=== PATIENT | male | born 1975 | race Asian ===

== ENCOUNTER 2016-07-21 09:47 | Observation (INO) | payer OTHER ==
[2016-07-21] VITALS (8 sets, daily range): BP systolic 112–139; BP diastolic 75–91; PULSE 67–98; RESP 11–21; O2SAT 97–100
[~2016-07-21] VITALS: Ht 165.1 cm; Wt 58.8 kg
--- NOTE | 2016-07-21 09:53 | ED.REPORT ---
HPI-Stroke / CVA Jul 21, 2016 ED Provider: MD Lev This is a 40 year old male presenting to the emergency department due to sudden onset R sided numbness that occurred 1.5 hours ago. Pt states he stood up and suddenly noticed R hand numbness, associated with R facial droop, and slurred speech. Episode lasted 45 seconds and spontaneously resolved. Pt states he is at baseline now but reports a "strange sensation" in the R small finger. Denies numbness or weakness in extremities but describes the sensation as "muscle fatigue." Denies change LOC, nausea, chest pain, diaphoresis, headache, slurred speech, facial droop, numbness, or weakness at this time. Left side unaffected. Nursing Notes Stated Complaint: RIGHT SIDE WEAKNESS Chief Complaint: Neuro Symptoms/ Deficits Nursing Notes Reviewed: Yes Allergies: Coded Allergies: No Known Allergies (Unverified , 07/21/16) Scheduled PRN Fluticasone Propionate (Flonase Allergy Relief) 50 Mcg/Actuation [place].susp 9.9 ML NS DIRECTED PRN PRN ALLERGIES (Reported) General Time Seen by Provider: 09:52 Chief Complaint Numbness Right-sided Hx Obtained From: Patient Arrived By: Walk-in Time last known well - Sudden in Onset?: Yes Symptom Duration: Since onset Progression Since Onset: Resolved Severity: Current: No pain currently Pertinent Negative: Pt denies other symptoms Recent Healthcare: No recent hospitalization, Recent doctor visit Similar Sx Previous: No Risk Factors )( TPA Administration/Criteria Stroke Thrombolytic Therapy : TPA Administered Intravenously: No, not indicated NIH Stroke Scale Level of Consciousness: Alert and responsive (0) Ask Month & Age: Both questions right (0) Open/Close Eyes/Hand Apparel Cutter: Performs both tasks (0) Horizontal EO Movements: None (0) Visual [place]: No visual loss (0) Facial Palsy: Normal symmetry (0) Right Arm Motor Drift (10s): No drift 10 sec (0) Left Arm Motor Drift (10s): No drift 10 sec (0) Right Leg Motor Drift (5s): No drift 5 sec (0) Left Leg Motor Drift (5s): No drift 5 sec (0) Limb Ataxia FNF/Heel-Hicks: No ataxia (0) Sensation (Arms/Legs/Face): No sensory loss (0) Language Aphasia: No aphasia, normal (0) Dysarthria: No dysarthria, normal (0) Extinction/Inattention: No exctinct/inattent (0) NIHSS Score: 0 Time NIHSS Performed: 09:58 Date NIHSS Performed: Jul 21, 2016 Past Medical History Past Medical History Denies Past Surgical History Denies Ambulatory Status Independent Review of Systems Constitutional: Denies: Chills, Fever Respiratory: Denies: Non-productive cough, Shortness of breath Cardiovascular: Denies: Chest pain GI: Denies: Abdominal pain, Nausea, Vomiting Neurologic: Reports: Numbness, Weakness, Denies: Headache, Lightheaded Complete sys rev & neg: except as marked. Physical Exam Initial Vital Signs Vital Signs (First) Date Time Temp Pulse Resp B/P Pulse Ox O2 Delivery O2 Flow Rate FiO2 07/21/16 09:52 36.8 81 15 138/91 100 Room Air - Initial VS: Reviewed ENT: Mucous membranes moist, Conjunctiva normal, No scleral icterus Abdomen / GI: Soft, Non-tender, No guarding, No rebound, No distention Skin: Warm, Dry, No cyanosis Psychiatric: Mood/affect normal, Behavior normal, Normal thought content General/Constitutional: Awake, Alert Head / Eyes: Normocephalic, PERRL, EOMI Neck: Supple, Full range of motion, No swelling, Non-tender, No carotid bruit Respiratory / Chest: Breath sounds NL, Breath sounds = bilat, No respiratory distress, No rales, No rhonchi, No wheezing Cardiovascular: Heart rate NL, Regular rhythm, Heart sounds NL, No murmurs, Peripheral circulation NL Neurologic: Oriented X3, Speech NL, No motor deficits, No sensory deficits, CN II - XII intact, Reflexes equal bilat, Cerebellar NL Upper Extremity / MS: Inspection NL, No swelling, Non-tender Lower Extremity / Pelvis / MS: Inspection NL, No swelling, Non-tender, No erythema, No deformity, Neurologic intact, Vascular intact, No edema Interpretation & Diagnostics Lab Results Interpretation Result Diagram: 07/21/16 1048 07/21/16 1048 Test 07/21/16 10:48 White Blood Count 6.9th/mm3 (3.8-10.1) Red Blood Count 5.58mil/mm3 (4.40-5.80) Hemoglobin 16.8g/dL (13.8-17.2) Hematocrit 48.1% (41.0-50.0) Mean Corpuscular Volume 86.2fL (81-100) Mean Corpuscular Hemoglobin 30.1pg (27.0-35.0) Mean Corpuscular Hemoglobin Concent 34.9% (32.0-37.0) Red Cell Distribution Width 12.3% (12.3-15.4) Platelet Count 241bil/L (150-400) Neutrophils (%) (Auto) 51.3% (40-74) Lymphocytes (%) (Auto) 36.8% (14-46) Monocytes (%) (Auto) 8.6% (4-12) Eosinophils (%) (Auto) 2.8% (0-5) Basophils (%) (Auto) 0.4% (0-3) Activated Partial Thromboplast Time 28.7sec (22.8-33.0) Sodium Level 137mEq/L (134-144) Potassium Level 4.3mEq/L (3.5-5.2) Chloride Level 101mEq/L (97-108) Carbon Dioxide Level 24mmol/L (18-29) Blood Urea Nitrogen 20mg/dL (6-20) Creatinine 0.82mg/dL (0.76-1.27) Estimat Glomerular Filtration Rate 111mL/min (>59) Glucose Level 99mg/dL (60-99) Calcium Level 9.1mg/dL (8.5-10.1) Total Bilirubin 0.9mg/dL (0.0-1.2) Aspartate Amino Transf (AST/SGOT) 27U/L (0-50) Alanine Aminotransferase (ALT/SGPT) 28U/L (0-44) Alkaline Phosphatase 39U/L (25-150) Troponin T 0.010ug/L (0.0-0.011) Total Protein 7.3g/dL (6.4-8.4) Albumin 4.5g/dL (3.4-5.0) ECG Interpretation ECG Interpretation: NSR at a rate of [address] elevation Time: 10:45 Interpreted by: ED physician CT Head Interpretation IMPRESSION: 1. No acute intracranial process. Dictated by: Pavithra Castañeda M.D. on 07/21/2016 at 10:44 Approved by: Pavithra Castañeda M.D. on 07/21/2016 at 10:45 Interpretation / Wet Read by: Interpret - Radiologist Re-Eval/Medical Decision Med Decision/Clinical Course 40-year-old male no past medical history presenting complaining of 45 second episode of right facial droop, right hand numbness and weakness, difficulty speaking at 08 30 this morning. Symptoms resolved prior to arrival. CT head no hemorrhage. Labs unremarkable. No prior history of TIA or CVA. He does have a history of anxiety. Discussed with patient and he will be admitted for TIA and stroke workup. Re-Evaluation/Progress : Time of Eval: 12:00 )( Re-Eval Neurologic Exam: Alert Patient Status: Condition resolved, Pain resolved Re-Evaluation/Progress Note: Discussed lab results and plan for admission. pt understands and agrees with plan, all questions addressed. Consultation : Referral / Consult Name: Crowley,Ed Shweta BROWN Consulted With: Hospitalist Call Returned at: 12:43 Baby Stroller Rental Clerk: Accepts admit Counseled Regarding: Diagnosis, Lab results, Need for follow-up, Need for admission Patient Discharge & Departure Impression: Primary Impression: TIA (transient ischemic attack) Transient cerebral ischemia type: unspecified Qualified Code: G45.9 - Transient cerebral ischemic attack, unspecified Disposition: ADMITTED TO HOSPITAL Discharge Condition All VS Reviewed: Yes Condition: Stable Referrals: NOPCP (PCP) Scribe Attestation Portions of this note were transcribed by Monique Lacey. I, Dr. Ohara personally performed the history, physical exam and medical decision-making; I reviewed and confirmed the accuracy of the information in the transcribed note. Signed by: ayan Mccabe. 07/21/2016, 15:00. Thony Ohara MD Jul 21, 2016 09:53 MONIQUE LACEY Jul 21, 2016 10:02
--- NOTE | 2016-07-21 10:47 | DRSVH ---
PROCEDURE: CT BRAIN WITHOUT CONTRAST ([id number]) INDICATIONS: Stroke TECHNIQUE: Noncontrast 4.5 mm thick angled axial sections acquired from the foramen magnum to the vertex, with c oronal reformats. COMPARISON: None. FINDINGS: Image quality: Excellent. CSF spaces: Basal cisterns are patent. No extra-axial fluid collections. Ventricles are normal in size and shape. Brain: No midline shift. No intracranial masses or hemorrhage. Tracy-white matter interface is norm al. Skull and face: Calvarium and visualized facial bones are intact, without suspicious lesions. Sinuses: Visualized sinuses and mastoids are clear. IMPRESSION: 1. No acute intracranial process. Dictated by: Pavithra Castañeda M.D. on 07/21/2016 at 10:44 Approved by: Pavithra Castañeda M.D. on 07/21/2016 at 10:45
[2016-07-21 10:58] LABS: BASOPHILS % (AUTO) 0.4 % (0-3); EOSINOPHILS % (AUTO) 2.8 % (0-5); MONOCYTES % (AUTO) 8.6 % (4-12); Mean Corpuscular Hemoglobin 30.1 pg (27.0-35.0); Mean Corpuscular Volume 86.2 fL (81-100); NEUTROPHILS % (AUTO) 51.3 % (40-74); Platelet Count 241 bil/L (150-400)
[2016-07-21 11:13] LABS: INR 0.97 ratio
[2016-07-21 11:24] LABS: TROPONIN T 0.01 ug/L (0.0-0.011)
[2016-07-21] MEDS ORDERED: Alum-Mag Hydrox-Simeth 30 mL Suspension PO PRN (12:45)
[2016-07-21] MEDS ORDERED: Ondansetron 2 mg/mL 2 mL Inj IV PRN (12:45)
[2016-07-21] MEDS ORDERED: Polyethylene Glycol (PEG) 17 Gm Powder PO PRN (12:45)
[2016-07-21] MEDS ORDERED: FLUT9.9S NS (14:21)
--- NOTE | 2016-07-21 15:24 | NUR ---
Admit Pt admitted to [facility] from ED at 1320. Pt denies pain. IV in LAC patent. Pt placed on tele, monitor made aware. Admit done by primary RN. in to see pt. Pt oriented with room and facility. Bed in low position, upper rails up, call light in reach. Will continue to monitor.
--- NOTE | 2016-07-21 16:06 | PCM.HPMED ---
Subjective Date of Service Jul 21, 2016 Primary Provider: Admitting Physician: Ed Crowley DO Primary Care Physician: Juan David Gamboa MD Attending Physician: Ed Crowley DO Chief Complaint: Slurred speech transient numbness of right hand History of Present Illness: Patient is a 40-year-old male with essentially negative past medical history unknown family history due to adoption presenting today following event earlier this morning during which time he experienced a sudden transient numbness of his right hand which subsequently extended [place] and began involving the right side of his face. He noted drooping of face and additionally of slurring of his speech for approximately 45 seconds, less than 1 minute before symptoms spontaneously improved. Hand numbness persisted a short period of time longer however all sensations had returned to normal within half an hour. He discussed with his the odd sensations and they agreed that presentation to urgent care for further evaluation was prudent, given abrupt onset and concern for possible serious medical condition. Patient was referred to emergency department from urgent care for further evaluation of possible TIA or CVA given history. ER evaluation no negative, nonetheless warranted admission given ER physician's concern for transient ischemic event, and need for further evaluation. Patient was in agreement due shock of events earlier today though he had no complaints or symptoms at time of presentation ER or when admitted to floor. Requiring my evaluation patient confirmed history obtained by emergency physician, and noted no recurrence of events since his presentation to emergency department. He additionally notes never experiencing any sensations like this in the past. He has no other acute complaints at this time specifically denying chest pain or shortness of breath. He changes in taste, vision, smell, sensation of any kind. Review of Systems: A 10 point review of systems was conducted and entirely negative except for pertinent positives and negatives included in above history of present illness Allergies Coded Allergies: No Known Allergies (Unverified , 07/21/16) Home Medications Topical steroid. PMH Unremarkable excepting recent rash of left arm which has resolved with topical steroid cream Surgical History Denies any significant surgical history Family History Patient was adopted and unaware of family history Social History Hx Alcohol Use: No Hx Substance Use: No Smoking Status: Never Smoker Exam Vital Signs Vital Sign - Last Date Time Temp Pulse Resp B/P Pulse Ox O2 Delivery O2 Flow Rate FiO2 07/21/16 14:26 75 07/21/16 13:27 36.6 16 139/87 97 Room Air General: Alert, Oriented X3, Cooperative, No Acute Distress Eyes: PERRLA, EOMI Mouth: Mucous Membr Moist/[place] Neck: Supple, No Thyromegaly Chest & Lungs: Clear to auscultation & percussion, No adventitious breath sounds Cardiovascular: Regular Rate/Rhythm, Normal S1, Normal S2, No Murmurs/Rubs/ Gallops Pulses: NL carotid, radial, femoral, DP, PT Abdomen: Non-tender, Non-distended Extremities: No cyanosis/clubbing/edma bilat Neurological: Grossly Neurologically Intact, Cranial Nerves 2-12 Intact, Normal Speech, Strength Normal 4/4 ext, Normal Gait, Sensation Intact, Cerebellar Function nl Finger-Nose, Cerebellar Function nl Heel-Hicks, Reflexes Normal, Babinski Reflex Normal Lab and Diagnostics Result Diagram: 07/21/16104707/21/161047 Assessment & Plan 40-year-old male with no significant past medical history, presenting with history highly concerning for transient ischemic event in spite of his exceedingly low risk, placed on hospital observation for further evaluation. 1. TIA/slurred speech right-sided weakness - Condition entirely resolved as noted in history of present illness - Patient be placed on continuous telemetry monitoring in addition conduct imaging studies including MRI and CT angiogram of neck as per TIA stroke protocol. - Echocardiogram is additionally pending to rule out any cardiogenic cause of stroke, and PT/OT and speech have been consulted for further evaluation of patient's motor functioning and capacity. - Patient notes recent lipid panel obtained at work was entirely normal so this will not be repeated. Hemoglobin A1c R has been ordered and is pending to rule out undiagnosed diabetes. 2. Allergic rash of arm - Noted previously, but now entirely resolved not appreciated on physical exam. - No interventions needed at this time, it appears unlikely to be related to problem above. Pain Evaluation: Adequate Pain Control GI Prophylaxis: Not indicated VTE Mechanical Devices: Anti-Embolic stockings Resuscitation Status: CPR: Attempt Resuscitation Time spent 40 minutes Ed Crowley DO Jul 21, 2016 16:06
--- NOTE | 2016-07-21 16:56 | NUR ---
Evaluation completed. Please go to "Notes" then click on "Assessments and Notes" (bottom left corner of screen). Then select appropriate discipline tab on top of screen.
[2016-07-22 00:58] VITALS: BP 148/71; PULSE 68; RESP 18; O2SAT 96
--- NOTE | 2016-07-22 04:35 | NUR ---
Uneventful night Patient reported that neuro symptoms have resolved, and he confirmed that he feels he is at his baseline. No deficits noted. Alert and oriented, clear speech, denies numbness/tingling, steady gait, equal strength. Pleasant and cooperative with care.
[2016-07-22 05:24] VITALS: BP 105/69; PULSE 66; RESP 16; O2SAT 99
[2016-07-22 06:23] VITALS: PULSE 66
[2016-07-22 10:13] VITALS: PULSE 73
[2016-07-22 10:15] VITALS: PULSE 78
[2016-07-22 10:26] VITALS: BP 110/75; PULSE 75; RESP 16; O2SAT 97
--- NOTE | 2016-07-22 12:04 | NUR ---
PT eval PT eval received per stroke guidelines; pt's Sxs completely resolved; discussed with nsg; pt was up indep without difficulty; stopped by for courtesy visit to see if pt had any concerns about strength/mobility and discharge back home; pt is confident that he is back to baseline and has no questions for PT; will discharge order at this time
--- NOTE | 2016-07-22 14:09 | PCM.DIMED ---
Discharge Instructions Date of Service Jul 22, 2016 Dates of Hospitalization Jul 21, 2016 at 12:47 Discharge Diagnosis Discharge Diagnosis Transient numbness with slurred speech, nerve palsy of unclear significance. No evidence of cerebral vascular accident/infarction. Diet No restrictions Activity No restrictions Call your provider Weakness (unilateral) Patient Instructions Follow-up Provider: Juan David Gamboa MD Follow-up with PCP in: 2 weeks Ed Crowley DO Jul 22, 2016 14:09
--- NOTE | 2016-07-22 14:24 | PCM.DC.MED ---
Discharge Summary Date of Service Jul 22, 2016 Dates of Hospitalization Date of Hospital Admission Jul 21, 2016 at 12:47 Date of Discharge: Jul 22, 2016 Providers: Admitting Physician: Ed Crowley DO Primary Care Physician: Juan David Gamboa MD Attending Physician: Ed Crowley DO Diagnosis at Time of Discharge Diagnosis at Time of Discharge Transient numbness with slurred speech, nerve palsy of unclear significance. No evidence of cerebral vascular accident/infarction. Procedures XRay, CTs & MRIs Date of Service: 07/21/16 1003 PROCEDURE: CT BRAIN WITHOUT CONTRAST ([id number]) INDICATIONS: Stroke TECHNIQUE: Noncontrast 4.5 mm thick angled axial sections acquired from the foramen magnum to the vertex, with coronal reformats. COMPARISON: None. FINDINGS: Image quality: Excellent. CSF spaces: Basal cisterns are patent. No extra-axial fluid collections. Ventricles are normal in size and shape. Brain: No midline shift. No intracranial masses or hemorrhage. [place]-white matter interface is normal. Skull and face: Calvarium and visualized facial bones are intact, without suspicious lesions. Sinuses: Visualized sinuses and mastoids are clear. IMPRESSION: 1. No acute intracranial process. Dictated by: Pavithra Castañeda M.D. on 07/21/2016 at 10:[address] angio Neck were still pending final readings at time of discharge, however the images were discussed with radiologist Blanche LUEVANO, who noted NO EVIDENCE of CVA or other abnormality. He did note on CT angio of neck, a Left dominant vertebral artery, with Rt A1 segment hypoplasty, however notes this is a common variant, given it was right sided, it would not correlate with symptoms of patient. Final readings will be reviewed when available. ECG 12 Lead NSR. Without arrhythmia or other abnormality. Normal ST-T wave segments. Cardiac Echo Impression Result pending at time of discharge. Will reviewed when available and pt. notified of any abnormal results. Brief History Patient is a 40-year-old male with essentially negative past medical history unknown family history due to adoption presenting today following event earlier this morning during which time he experienced a sudden transient numbness of his right hand which subsequently extended [place] and began involving the right side of his face. He noted drooping of face and additionally of slurring of his speech for approximately 45 seconds, less than 1 minute before symptoms spontaneously improved. Hand numbness persisted a short period of time longer however all sensations had returned to normal within half an hour. He discussed with his the odd sensations and they agreed that presentation to urgent care for further evaluation was prudent, given abrupt onset and concern for possible serious medical condition. Patient was referred to emergency department from urgent care for further evaluation of possible TIA or CVA given history. ER evaluation no negative, nonetheless warranted admission given ER physician's concern for transient ischemic event, and need for further evaluation. Patient was in agreement due shock of events earlier today though he had no complaints or symptoms at time of presentation ER or when admitted to floor. Requiring my evaluation patient confirmed history obtained by emergency physician, and noted no recurrence of events since his presentation to emergency department. He additionally notes never experiencing any sensations like this in the past. He has no other acute complaints at this time specifically denying chest pain or shortness of breath. He changes in taste, vision, smell, sensation of any kind. Hospital Course 40-year-old male with no significant past medical history, presenting with history highly concerning for transient ischemic event in spite of his exceedingly low risk, placed on hospital observation for further evaluation. 1. TIA/slurred speech right-sided weakness - Condition entirely resolved as noted in history of present illness, no sympotms returned during hospitalization. - He was monitored on continuous telemetry which demonstrated no abnormalities, additionally received echocardiogram, MR brain, and CT angio of his neck. No readings were not available at time of discharge however given patient's stability, and no return of symptoms, preliminary readings were sought from radiology and cardiac specialists. reviewed MR and CT results, noting only an incidental finding of a right vertebral dominant vasculature, with the right A1 segment hypoplasty, she is not an uncommon variant. He saw no evidence of acute stroke on either MRI or CT, and certainly no abnormalities which would explain patient's transient symptoms reported prior to presentation. Patient will follow up with primary care doctor in 1-2 weeks, at which time final results will certainly be available and may be obtained from hospital records. Diabetic screening was negative, and as noted in admission lipid studies obtained recently were also reported to have been within normal limits. 2. Allergic rash of arm - Noted previously, but now entirely resolved not appreciated on physical exam. - No interventions needed at this time, it appears unlikely to be related to problem above. Exam Vital Signs (Last) Date Time Temp Pulse Resp B/P Pulse Ox O2 Delivery O2 Flow Rate FiO2 07/22/16 10:26 36.7 75 16 110/75 97 Room Air Exam General: Alert, Oriented X3, Cooperative, No Acute Distress Eyes: PERRLA, EOMI Mouth: Mucous Membr Moist/[place] Neck: Supple, No Thyromegaly Chest & Lungs: Clear to auscultation & percussion, No adventitious breath sounds Cardiovascular: Regular Rate/Rhythm, Normal S1, Normal S2, No Murmurs/Rubs/ Gallops Pulses: NL carotid, radial, femoral, DP, PT Abdomen: Non-tender, Non-distended Extremities: No cyanosis/clubbing/edma bilat Neurological: Grossly Neurologically Intact, Cranial Nerves 2-12 Intact, Normal Speech, Strength Normal 4/4 ext, Normal Gait, Sensation Intact, Cerebellar Function nl Finger-Nose, Cerebellar Function nl Heel-Hicks, Reflexes Normal, Babinski Reflex Normal Test 07/21/16 10:48 07/21/16 14:04 White Blood Count 6.9th/mm3 (3.8-10.1) Red Blood Count 5.58mil/mm3 (4.40-5.80) Hemoglobin 16.8g/dL (13.8-17.2) Hematocrit 48.1% (41.0-50.0) Mean Corpuscular Volume 86.2fL (81-100) Mean Corpuscular Hemoglobin 30.1pg (27.0-35.0) Mean Corpuscular Hemoglobin Concent 34.9% (32.0-37.0) Red Cell Distribution Width 12.3% (12.3-15.4) Platelet Count 241bil/L (150-400) Neutrophils (%) (Auto) 51.3% (40-74) Lymphocytes (%) (Auto) 36.8% (14-46) Monocytes (%) (Auto) 8.6% (4-12) Eosinophils (%) (Auto) 2.8% (0-5) Basophils (%) (Auto) 0.4% (0-3) Activated Partial Thromboplast Time 28.7sec (22.8-33.0) Sodium Level 137mEq/L (134-144) Potassium Level 4.3mEq/L (3.5-5.2) Chloride Level 101mEq/L (97-108) Carbon Dioxide Level 24mmol/L (18-29) Blood Urea Nitrogen 20mg/dL (6-20) Creatinine 0.82mg/dL (0.76-1.27) Estimat Glomerular Filtration Rate 111mL/min (>59) Glucose Level 99mg/dL (60-99) Calcium Level 9.1mg/dL (8.5-10.1) Total Bilirubin 0.9mg/dL (0.0-1.2) Aspartate Amino Transf (AST/SGOT) 27U/L (0-50) Alanine Aminotransferase (ALT/SGPT) 28U/L (0-44) Alkaline Phosphatase 39U/L (25-150) Troponin T 0.010ug/L (0.0-0.011) Total Protein 7.3g/dL (6.4-8.4) Albumin 4.5g/dL (3.4-5.0) Prothrombin Time 10.7sec (8.1-12.5) Prothromb Time International Ratio 1.00ratio Hemoglobin A1c 5.3% (4.8-5.6) Magnesium Level 2.3mg/dL (1.6-2.6) Discharge Medications As needed Fluticasone Propionate (Flonase Allergy Relief) 50 Mcg/Actuation [place].susp 9.9 ML NS DIRECTED PRN PRN ALLERGIES (Reported) Followup Plan Disposition: Home Discharge Diet: No restrictions Discharge Activity: No restrictions Follow-up Provider: Juan David Gamboa MD Follow-up with PCP in: 2 weeks Time spent 40 minutes copies to: Juan David Gamboa MD, Benjamin P DO Jul 22, 2016 14:24
[2016-07-22] MEDS ORDERED: ASPI325T32 PO (14:49)
--- NOTE | 2016-07-22 15:08 | PCM.DIMED ---
Discharge Instructions Date of Service Jul 22, 2016 Dates of Hospitalization Jul 21, 2016 at 12:47 Discharge Diagnosis Discharge Diagnosis Transient Ischemic Event secondary to Atrial Septal Defect Diet No restrictions Activity No restrictions Call your provider Weakness (unilateral) Patient Instructions Following discussion with senior cytogenetic technologist, Diagnosis of Atrial Septal Defect with Valsalva maneuver only, was diagnosed. This will require initiation of Aspirin 325mg PO daily at this time, and further evaluation in out patient setting by senior cytogenetic technologist with Transesophageal echocardiogram for better imaging. MR brain results demonstrated NO evidence of stroke however, should ischemic event have occurred, minimal brain tissue was involved/effected, which is also supported by the resolution of your symptoms. Follow-up Provider: Juan David Gamboa MD Follow-up with PCP in: 2 weeks Ed Crowley DO Jul 22, 2016 15:08
--- NOTE | 2016-07-22 15:14 | DRSVH ---
PROCEDURE: CT ANGIO HEAD AND NECK (P) INDICATIONS: Stroke/TIA TECHNIQUE: Pre-contrast 4.5 mm thick sections acquired from the foramen magnum to the vertex. After the adminis tration of intravenous contrast, 1 mm thick sections acquired from the aortic arch through the [place]. Post-contrast 4.5 mm thick sections then re-acquired from the foramen magnum to the vert ex. 3-dimensional zuzgqmg-jaqdekahw-lrvnrpppff (MIP) and/or volume rendering reformats were acquired of the central intracranial vasculature and neck separately. For radiation dose reduction, the foll owing was used: automated exposure control, adjustment of mA and/or kV according to patient size. COMPARISON: [facility], MR, MR BRAIN WO CON, 07/22/2016, 13:43. [facility], CT, CT BRAIN WO CON, 07/21/2016, 10:36. FINDINGS: Image quality: Excellent. BRAIN: CSF spaces: Ventricles are normal in size and shape. Basal cisterns are patent. No extra-axial flu id collections. Brain: No midline shift. No intracranial bleeds or masses. Tracy-white matter interface appears int act. Skull and face: Calvarium and facial bones appear intact, without suspicious lesions. Orbits appear normal. Sinuses: Sinuses and mastoids are clear. HEAD CT ANGIOGRAPHY: Anterior circulation: Intracranial internal carotid arteries are normal in size and flow. The A1 se gment of the right anterior cerebral artery is small, most likely congenital. More distally, the flow within the paired anterior cerebral arteries is normal and symmetric. The flow within the middle ce rebral arteries is normal and symmetric. The anterior communicating artery is seen. No aneurysms ar e seen. Posterior circulation: The left vertebral artery is dominant. Visualized portions of the vertebral a rteries demonstrate normal caliber, and join to form a normal appearing basilar artery. Flow within the posterior cerebral arteries is normal and symmetric. No aneurysms are seen. NECK CT ANGIOGRAPHY: Carotid system: The great vessels demonstrate a conventional anatomy as they arise from the aortic a rch. The origins of the common carotid arteries appear patent. The common carotid arteries demonstr ate normal caliber and courses. The bifurcation regions are both widely patent. The internal caroti d arteries demonstrate normal calibers and courses. Posterior circulation: The origins of the vertebral arteries both appear widely patent. The more shah perior extracranial portions of both vertebral arteries also demonstrate normal courses and calibers. They join to form a normal appearing basilar artery. Soft tissues: Visualized neck soft tissues demonstrate no suspicious abnormalities. Bones: No suspicious bony lesions. Visualized cervical spine appears normally aligned. IMPRESSION: 1. Normal cervical CT angiogram. No hyper stenosis or occlusion in carotid arteries or vertebral kay kristopher. 2. Dominant left vertebral artery. 3. 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 4. No high-grade stenosis or occlusion in the intracranial anterior or posterior circulations. Dictated by: Austin Mancia M.D. on 07/22/2016 at 10:52 Transcribed by: SHAVON on 07/22/2016 at 11:02 Approved by: Austin Mancia M.D. on 07/22/2016 at 14:20
--- NOTE | 2016-07-22 15:14 | DRSVH ---
[facility] [address] [place] [address] Echocardiogram Report Name: SEAN EATON HStudy Date: 07/04 Height: 65 in Hospital Exam Location: [facility] Weight: 130 lb Gender: Male BSA: 1.6 m2 : 1975 Age: 40 yrs BP: 105/69 mmHg Reason For Study: TIA Ordering Physician: Performed By: [facility] Interpretation Summary The left atrial size is normal. Right atrial size is normal. There is no Doppler evidence for an atrial septal defect, however during injection of contrast with Valsalva there is evidence of bubbles crossing over to left atrium within 3 beats of complete agitated saline opacification of right atrium. The left ventricle is normal in size. Left ventricular systolic function is normal without focal wall motion abnormalities. The ejection fraction is estimated to be 55-60%. The right ventricle is normal in size, thickness and function. The right ventricular systolic pressure is estimated at 24 mmHg assuming a right atrial pressure of 3 mm Hg. There is no significant valvular heart disease. The aortic root is normal size. Procedure: A two-dimensional transthoracic echocardiogram with color flow and Doppler was performed. The study quality was technically good. There is no prior echocardiogram noted for this patient. The patient was in normal sinus rhythm during the exam. Left Ventricle: The left ventricle is normal in size. There is normal left ventricular wall thickness. Left ventricular systolic function is normal without focal wall motion abnormalities. The ejection fraction is estimated to be 55-60%. Assessment of diastolic parameters indicates normal left ventricular diastolic function and normal filling pressures. Right Ventricle: The right ventricle is normal in size, thickness and function. Atria: The left atrial size is normal. Right atrial size is normal. There is no Doppler evidence for an atrial septal defect. Injection of contrast with valsalva documented an interatrial shunt. Mitral Valve: The mitral valve is normal in structure and function. There is no mitral regurgitation noted. Aortic Valve: The aortic valve is trileaflet. The aortic valve opens well. No aortic regurgitation is present. Tricuspid Valve: The tricuspid valve is normal in structure and function. There is a trace or physiologic amount of tricuspid regurgitation. The right ventricular systolic pressure is estimated at 24 mmHg assuming a right atrial pressure of 3 mm Hg. Pulmonic Valve: The pulmonic valve is normal in structure and function. There is no pulmonic valvular regurgitation. There is no significant valvular heart disease. Great Vessels: The aortic root is normal size. The dimensions of the ascending aorta are normal. The IVC is of normal diameter and collapses greater than 50% with a sniff. This suggests a low right atrial pressure of 3 mm Hg. Pericardium/ Pleura There is no pericardial effusion. There is no pleural effusion. MMode/2D Measurements & Calculations LVIDd: 4.6 cm LA dimension: 2.9 cm RA long axis Ao root diam LVIDs: 3.0 cm FS: 35.0 % LA A2 area: 15.5 cm RA area Aortic Jxn: 2.6 cm IVSd: 0.77 cm LA A4 area: 9.9 cm asc Aorta Diam LVPWd: 0.84 cm LA length (vol) : 9.8 cm RA vol Ao Arch Diam (Prox LA vol: 31.2 ml : 21.6 ml Trans): 2.8 cm LA vol index RA : 13.1 mm/ RVDd major IVC diam: 1.6 cm : 5.9 cm LV chaves. diameter/BSA LV sys. diameter/BSA RVD1 (basal) RVD2 (mid): 3.0 cm (cm/m^2): 2.8 (cm/m^2): 1.8 Doppler Measurements & Calculations Ao V2 max MV E max breezy MV E/A: 1.0 TR max breezy : 87.9 cm/sec : 43.1 cm/sec MV A dur: 0.15 sec : 230.6 cm/sec Ao max PG MV A max breezy TR max PG : 3.1 mmHg : 41.8 cm/sec : 21.3 mmHg Ao mean PG MV P1/2t: 85.1 msec PA V2 max : 1.8 mmHg : 76.5 cm/sec PA mean PG PA Accel Time : 0.18 sec MV dec time MV P1/2t max breezy Ao V2 mean PA V2 mean : 0.28 sec : 63.5 cm/sec : 47.7 cm/sec MVA(P1/2t): 2.6 cm2 Ao V2 VTI: 18.9 cm Reading Physician:PM
--- NOTE | 2016-07-22 15:15 | DRSVH ---
PROCEDURE: MRI BRAIN WITHOUT CONTRAST ([id number]) INDICATIONS: TIA TECHNIQUE: Noncontrast axial T1 spin echo, axial T2 fast spin echo, sagittal and axial FLAIR, coronal T2 fast sp in echo, axial gradient echo, axial diffusion and ADC through the brain. COMPARISON: None. FINDINGS: Image quality: Excellent. CSF Spaces: Basal cisterns are patent. No extra-axial fluid collections. Ventricles are normal in size and shape. Brain: No intracranial masses or hemorrhage. Tracy/white matter interface is normal. Brainstem appe ars normal. Diffusion-weighted images demonstrate no acute ischemic insult. No chronic ischemic ins ults. Normal intravascular flow voids are present. Skull and face: Calvarium has normal marrow signal. Orbits appear normal. Sinuses: Sinuses and mastoids are clear. IMPRESSION: Negative examination. No evidence of acute ischemia. Dictated by: Ziyad Abraham M.D. on 07/22/2016 at 14:17 Approved by: Ziyad Abraham M.D. on 07/22/2016 at 14:21
--- NOTE | 2016-07-22 15:27 | PCM.DC.MED ---
Discharge Summary Date of Service Jul 22, 2016 Dates of Hospitalization Date of Hospital Admission Jul 21, 2016 at 12:47 Date of Discharge: Jul 22, 2016 Providers: Admitting Physician: Ed Crowley DO Primary Care Physician: Juan David Gamboa MD Attending Physician: Ed Crowley DO Diagnosis at Time of Discharge Diagnosis at Time of Discharge Transient Ischemic Event secondary to Atrial Septal Defect Procedures XRay, CTs & MRIs Date of Service: 07/21/16 1003 PROCEDURE: CT BRAIN WITHOUT CONTRAST ([id number]) INDICATIONS: Stroke TECHNIQUE: Noncontrast 4.5 mm thick angled axial sections acquired from the foramen magnum to the vertex, with coronal reformats. COMPARISON: None. FINDINGS: Image quality: Excellent. CSF spaces: Basal cisterns are patent. No extra-axial fluid collections. Ventricles are normal in size and shape. Brain: No midline shift. No intracranial masses or hemorrhage. Tracy-white matter interface is normal. Skull and face: Calvarium and visualized facial bones are intact, without suspicious lesions. Sinuses: Visualized sinuses and mastoids are clear. IMPRESSION: 1. No acute intracranial process. Dictated by: Pavithra Castañeda M.D. on 07/21/2016 at 10:[address] angio Neck were still pending final readings at time of discharge, however the images were discussed with radiologist Blanche LUEVANO, who noted NO EVIDENCE of CVA or other abnormality. He did note on CT angio of neck, a Left dominant vertebral artery, with Rt A1 segment hypoplasty, however notes this is a common variant, given it was right sided, it would not correlate with symptoms of patient. Final readings will be reviewed when available. ECG 12 Lead NSR. Without arrhythmia or other abnormality. Normal ST-T wave segments. Cardiac Echo Impression Echocardiogram Report Name: SEAN EATON HStudy Date: 07/04 Height: 65 in Hospital Exam Location: [facility] Weight: 130 lb Gender: Male BSA: 1.6 m2 : 1975 Age: 40 yrs BP: 105/69 mmHg Reason For Study: TIA Ordering Physician: Performed By: [facility] Interpretation Summary The left atrial size is normal. Right atrial size is normal. There is no Doppler evidence for an atrial septal defect, however during injection of contrast with Valsalva there is evidence of bubbles crossing over to left atrium within 3 beats of complete agitated saline opacification of right atrium. The left ventricle is normal in size. Left ventricular systolic function is normal without focal wall motion abnormalities. The ejection fraction is estimated to be 55-60%. The right ventricle is normal in size, thickness and function. The right ventricular systolic pressure is estimated at 24 mmHg assuming a right atrial pressure of 3 mm Hg. There is no significant valvular heart disease. The aortic root is normal size. Brief History Patient is a 40-year-old male with essentially negative past medical history unknown family history due to adoption presenting today following event earlier this morning during which time he experienced a sudden transient numbness of his right hand which subsequently extended [place] and began involving the right side of his face. He noted drooping of face and additionally of slurring of his speech for approximately 45 seconds, less than 1 minute before symptoms spontaneously improved. Hand numbness persisted a short period of time longer however all sensations had returned to normal within half an hour. He discussed with his the odd sensations and they agreed that presentation to urgent care for further evaluation was prudent, given abrupt onset and concern for possible serious medical condition. Patient was referred to emergency department from urgent care for further evaluation of possible TIA or CVA given history. ER evaluation no negative, nonetheless warranted admission given ER physician's concern for transient ischemic event, and need for further evaluation. Patient was in agreement due shock of events earlier today though he had no complaints or symptoms at time of presentation ER or when admitted to floor. Requiring my evaluation patient confirmed history obtained by emergency physician, and noted no recurrence of events since his presentation to emergency department. He additionally notes never experiencing any sensations like this in the past. He has no other acute complaints at this time specifically denying chest pain or shortness of breath. He changes in taste, vision, smell, sensation of any kind. Hospital Course 40-year-old male with no significant past medical history, presenting with history highly concerning for transient ischemic event in spite of his exceedingly low risk, placed on hospital observation for further evaluation. 1. TIA/slurred speech right-sided weakness - Condition entirely resolved as noted in history of present illness, no sympotms returned during hospitalization. - He was monitored on continuous telemetry which demonstrated no abnormalities, additionally received echocardiogram, MR brain, and CT angio of his neck. No readings were not available at time of discharge however given patient's stability, and no return of symptoms, preliminary readings were sought from radiology and cardiac specialists. reviewed MR and CT results, noting only an incidental finding of a right vertebral dominant vasculature, with the right A1 segment hypoplasty, she is not an uncommon variant. He saw no evidence of acute stroke on either MRI or CT, and certainly no abnormalities which would explain patient's transient symptoms reported prior to presentation. Echocardiogram was discussed directly with interpreting senior restaurant manager, Dr Aguayo , who identified a Atrial Septal Defect noted ONLY with Valsalva maneuver. Visualization was not perfect, limited by imaged quality. Given no residual symptoms and negative central imaging studies, it appears that if an event occurred it was at least small. His further recommendations are: Initiation of Aspirin 325mg PO daily FU with cardiology out patient for [place]OR[place] to better assess ASD. Recommends limited activity, limit exertional efforts which will cause pt to bear down/heavy lifting, until further information can be obtained. Prescription provided, referral deferred to PCP, Dr. Juan David Gamboa. Exam Vital Signs (Last) Date Time Temp Pulse Resp B/P Pulse Ox O2 Delivery O2 Flow Rate FiO2 07/22/16 10:26 36.7 75 16 110/75 97 Room Air Exam General: Alert, Oriented X3, Cooperative, No Acute Distress Eyes: PERRLA, EOMI Mouth: Mucous Membr Moist/[place] Neck: Supple, No Thyromegaly Chest & Lungs: Clear to auscultation & percussion, No adventitious breath sounds Cardiovascular: Regular Rate/Rhythm, Normal S1, Normal S2, No Murmurs/Rubs/ Gallops Pulses: NL carotid, radial, femoral, DP, PT Abdomen: Non-tender, Non-distended Extremities: No cyanosis/clubbing/edma bilat Neurological: Grossly Neurologically Intact, Cranial Nerves 2-12 Intact, Normal Speech, Strength Normal 4/4 ext, Normal Gait, Sensation Intact, Cerebellar Function nl Finger-Nose, Cerebellar Function nl Heel-Hicks, Reflexes Normal, Babinski Reflex Normal Test 07/21/16 10:48 07/21/16 14:04 White Blood Count 6.9th/mm3 (3.8-10.1) Red Blood Count 5.58mil/mm3 (4.40-5.80) Hemoglobin 16.8g/dL (13.8-17.2) Hematocrit 48.1% (41.0-50.0) Mean Corpuscular Volume 86.2fL (81-100) Mean Corpuscular Hemoglobin 30.1pg (27.0-35.0) Mean Corpuscular Hemoglobin Concent 34.9% (32.0-37.0) Red Cell Distribution Width 12.3% (12.3-15.4) Platelet Count 241bil/L (150-400) Neutrophils (%) (Auto) 51.3% (40-74) Lymphocytes (%) (Auto) 36.8% (14-46) Monocytes (%) (Auto) 8.6% (4-12) Eosinophils (%) (Auto) 2.8% (0-5) Basophils (%) (Auto) 0.4% (0-3) Activated Partial Thromboplast Time 28.7sec (22.8-33.0) Sodium Level 137mEq/L (134-144) Potassium Level 4.3mEq/L (3.5-5.2) Chloride Level 101mEq/L (97-108) Carbon Dioxide Level 24mmol/L (18-29) Blood Urea Nitrogen 20mg/dL (6-20) Creatinine 0.82mg/dL (0.76-1.27) Estimat Glomerular Filtration Rate 111mL/min (>59) Glucose Level 99mg/dL (60-99) Calcium Level 9.1mg/dL (8.5-10.1) Total Bilirubin 0.9mg/dL (0.0-1.2) Aspartate Amino Transf (AST/SGOT) 27U/L (0-50) Alanine Aminotransferase (ALT/SGPT) 28U/L (0-44) Alkaline Phosphatase 39U/L (25-150) Troponin T 0.010ug/L (0.0-0.011) Total Protein 7.3g/dL (6.4-8.4) Albumin 4.5g/dL (3.4-5.0) Prothrombin Time 10.7sec (8.1-12.5) Prothromb Time International Ratio 1.00ratio Hemoglobin A1c 5.3% (4.8-5.6) Magnesium Level 2.3mg/dL (1.6-2.6) Discharge Medications Discharge Medications Aspirin (Aspirin) 325 Mg Tablet 325 MG PO DAILY Prescribed by: ED CROWLEY DO As needed Fluticasone Propionate (Flonase Allergy Relief) 50 Mcg/Actuation [place].susp 9.9 ML NS DIRECTED PRN PRN ALLERGIES (Reported) Followup Plan Disposition: Home Discharge Diet: No restrictions Discharge Activity: Limited until seen by PCP Patient Instructions Following discussion with senior restaurant manager, Diagnosis of Atrial Septal Defect with Valsalva maneuver only, was diagnosed. This will require initiation of Aspirin 325mg PO daily at this time, and further evaluation in out patient setting by senior restaurant manager with Transesophageal echocardiogram for better imaging. MR brain results demonstrated NO evidence of stroke however, should ischemic event have occurred, minimal brain tissue was involved/effected, which is also supported by the resolution of your symptoms. Follow-up Provider: Juan David Gamboa MD Follow-up with PCP in: 1 week Time spent 55 minutes copies to: Juan David Gamboa MD, Benjamin P DO Jul 22, 2016 15:26
--- NOTE | 2016-07-22 15:35 | NUR ---
Social Work: Screening / D/C Data: Pt is a 40 y/o male admitted for TIA. Pt's PCP is Dr Gamboa, pt's insurance is [id number]. EMR reviewed. Readmit score is 0, low. ST has cleared pt for no further treatment needed. No d/c planning needs at this time. GEAR STRAIGHTENER will continue to follow if needs arise. Assessment: Pt who is independent at baseline. Plan: Pt will d/c home via POV today. No d/c planning needs at this time. GEAR STRAIGHTENER will continue to follow if needs arise. FRANCES Abdullahi
--- NOTE | 2016-07-22 16:19 | NUR ---
Discharge D/C to home with . D/C instructions, f/u info, care notes and Rx discussed and provided in packet. Pt has no further questions at this time. Pt requested to ambulate off floor and left will all belongings in no sign of distress.
== END 2016-07-22 15:30 | disposition home or self-care (01) ==
LOC: SED 09:47 → MPC 12:47
PROVIDERS: ADMIT Family Medicine; ATTEND Family Medicine
DX: G45.9 Transient cerebral ischemic attack, unspecified (principal); Q21.1 Atrial septal defect; R47.81 Slurred speech; R20.0 Anesthesia of skin; R29.810 Facial weakness; R21 Rash and other nonspecific skin eruption
CPT/HCPCS: 36415; 70450; 70496; 70498; 70551; 80053; 83036; 83735; 84484; 85025; 85610; 85730; 92610; 93005; 99285; C8929; G0378; Q9967